=== PATIENT | female | born 1945 | race Caucasian/White ===

== ENCOUNTER → 2021-05-27 | Outpatient (CLI) | payer MEDICARE, OTHER ==
[~2021-05-27] MED LIST: ASPI81EC PO; ATOR20 PO; DICL75ER PO; ENOX40I SC; Hair, Skin & N1 EACH PO; OXYACE5T PO
== END | disposition home or self-care (01) ==
LOC: LAB SHORT 07:40
DX: L57.0 Actinic keratosis (principal)
CPT/HCPCS: 88305

== ENCOUNTER → 2023-03-27 | Outpatient (CLI) | payer MEDICARE, OTHER | END | disposition home or self-care (01) | LOC: PLD 08:03 → LAB 08:03 → LAB SHORT 08:03 | DX: L57.0 Actinic keratosis (principal) | CPT/HCPCS: 88305 ==

== ENCOUNTER → 2023-12-06 | Outpatient (CLI) | payer MEDICARE, OTHER ==
[~2023-12-06] MED LIST changes: +ASPI81CH PO; +Aspir 8181 MG PO; +ISOSORBIDE MONO60 MG PO; +LISI20 PO; +Lopressor 25 mg25 MG PO; +Pravastatin Sod80 MG PO
== END | disposition home or self-care (01) ==
LOC: LAB SHORT 15:10 → PLD 15:10
DX: L82.1 Other seborrheic keratosis (principal)
CPT/HCPCS: 88305

== ENCOUNTER → 2024-11-25 | Outpatient (CLI) | payer MEDICARE | LOC: PLD 15:14 → LAB 15:14 → LAB SHORT 15:14 | DX: L82.0 Inflamed seborrheic keratosis (principal); D48.5 Neoplasm of uncertain behavior of skin | CPT/HCPCS: 88305 ==